=== PATIENT | female | born 1980 | race Caucasian/White ===

== ENCOUNTER 2016-10-24 09:24 | Emergency (ER) | payer SELFPAY ==
--- NOTE | 2016-10-24 10:50 | DIAGNOSTIC IMAGING REPORT ---
PROCEDURE: XR CHEST 2 VIEW INDICATION: SYNCOPE TECHNIQUE: PA and lateral views. COMPARISON: None. FINDINGS: Lungs are clear. Heart and mediastinum are normal. Thorax is normal. IMPRESSION: 1. Negative chest.
--- NOTE | 2016-10-24 10:51 | DIAGNOSTIC IMAGING REPORT ---
PROCEDURE: XR LUMBAR SPINE 2 OR 3 VIEWS INDICATION: TRAUMA/INJURY TECHNIQUE: Three views. COMPARISON: None. FINDINGS: Osseous structures and disc spaces are normal. No evidence of an acute process or fracture. IMPRESSION: 1. Negative lumbar spine.
--- NOTE | 2016-10-24 11:44 | ED ORDER SUMMARY ---
..... Patient: TARA AGUDELO OrderSheet [facility] VisitID: [id number] [place] [address] 36y, F Registration Date/Time: 10/24/2016 ORDER SHEET Weight: 61.2 kg (stated) Allergies: No Known Drug Allergy GENERAL ORDERS: Metal Cut Off Saw Tender (Continuous) (10:10/24/2016 Raymond BRYSON) (Ack 10:20 Musa) (11:29 KWilliams R.N.) Chest 2V Urgent (10:10/24/2016 Raymond BRYSON) (Ack 10:20 Edgarnandez) (11:29 KWilliams R.N.) UA-Culture if indicated Urgent (10:10/24/2016 Raymond BRYSON) (Ack 10:20 Musa) (11:29 KWilliams R.N.) Cardiac Panel Stat (10:10/24/2016 Raymond BRYSON) (Ack 10:20 Musa) (10:28 KWilliams R.N.) Urine Urgent (10:10/24/2016 Raymond BRYSON) (Ack 10:20 Musa) (11:29 KWilliams R.N.) Urine Drug Screen Urgent (10:10/24/2016 Raymond BRYSON) (Ack 10:20 Musa) (11:29 KWlvams R.N.) EKG - ER Stat (10:10/24/2016 Raymond BRYSON) (Ack 10:20 Musa) (10:28 KWilliams R.N.) Lumbar Spine 2 or 3V Urgent (10:10/24/2016 Raymond BRYSON) (Ack 10:28 Musa) (11:29 KWlvams R.N.) TSH Urgent (10:10/24/2016 Raymond BRYSON) (10:28 KWilliams R.N.) (Ack 10:28 Edgarnandez) D-Dimer Urgent (10:10/24/2016 Raymond BRYSON) (10:28 Alvin R.N.) (Ack 10:28 OHmaitenandez) MEDICATION ORDERS: Hydrocodone-APAP PO 10/650 mg (NOW) (10:20 10/24/2016 Raymond BRYSON) (Ack 10:21 Negrito R.N.) (10:28 Alvin R.N.) Soma PO 350 mg (NOW) (10:20 10/24/2016 Raymond BRYSON) (Ack 10:21 Negrito R.N.) (10:28 Alvin R.N.) Toradol IM 60 mg (NOW) (10:53 10/24/2016 Raymond BRYSON) (Cancelled: Other11:30 Raymond BRYSON) IV FLUIDS: Toradol IV 30 mg (NOW) (11:30 10/24/2016 Raymond BRYSON) (11:36 Alvin R.N.) ORDER SHEET NOTES: [Electronically signed by Nazario Thomason R.N. (14:10/24/2016)] [Electronically signed by Lee Gillis MD (21:10/25/2016)] [Electronically locked/signed by Nazario Thomason R.N. (14:10/24/2016)]
--- NOTE | 2016-10-24 11:44 | ED CLINICAL REPORT ---
Clinical Report - Physicians/Mid Levels [facility] [address] [place] [address] 10/24/2016 9:27 [id number] Time Seen: 10:01 Oct 24 2016. Arrived- By private vehicle. Historian- patient. CPT: ER phys charges level 4 plus (#[id number]). EKG interpretation (#[id number]). HISTORY OF PRESENT ILLNESS Chief Complaint: BACK PAIN. It is described as being moderate in degree and in the area of the lower lumbar spine and radiating to the right hip, thigh, knee, calf and foot and right groin and to the left hip, thigh, knee, calf and foot and left groin. The quality is noted to be sharp, aching and "pain". 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 She states she doesn't remember much about the fall.). and it is still present. No bladder dysfunction, bowel dysfunction, sensory loss or motor loss. Additional history - Pt states she was in the kitchen 2 weeks ago, felt light headed with left arm pain. Woke up on the ground with left supraorbital laceration. Did not see a Doctor due to no insurance. Head wound has resolved. Has had no residual or increasing neurological symptoms. Has had persistent low back pain with radiation down the lateral and anterior legs to both feet. Also has had radicular pain to the groin. Has a history of chronic low back pain. Feels she may have passed out due to heavy work in hot temperatures and poor water intake that day. Patient notes an injury. Mechanism of injury- (Fall). Similar symptoms previously: Milder. Diagnosis: chronic back pain. Recent medical care: Not recently seen/assessed. REVIEW OF SYSTEMS No fever, chills, difficulty with urination, urinary frequency or hematuria. No skin rash, headache, sore throat, cough or difficulty breathing. No chest pain, abdominal pain, nausea, vomiting or diarrhea. No black stools. Has been off medications due to no insurance. All systems otherwise negative, except as recorded above. PAST HISTORY Has had back injury. She has had prior back pain. Thyroid Disease. Grave's Disease. Back Pain. IUD : Ne menses for a couple of years. Additional Surgeries: no known surgeries. Medications: None. Allergies: No Known Drug Allergy. SOCIAL HISTORY Former smoker. Occasional alcohol use. History of drug use: marijuana. ADDITIONAL NOTES The nursing notes have been reviewed. PHYSICAL EXAM Vital Signs: 10/24/2016 09:38 BP: 141/72. HR: 89. RR: 17. O2 saturation: 100%. Temp: 98.1 F. Appearance: Alert. HEENT: Normal external inspection. ENT: Ears normal. Pharynx normal. Neck: Normal inspection. Neck nontender. Painless ROM. CVS: Heart sounds normal. Pulses normal. Respiratory: No respiratory distress. Breath sounds normal. Abdomen: No visible injury. Soft and nontender. Bowel sounds normal. No mass. Back: Normal inspection. Moderate vertebral point tenderness over the lower lumbar spine. Moderate soft tissue tenderness in the right mid and lower and left mid and lower lumbar area. Skin: Skin warm. Normal skin color. No rash. Extremities: Extremities exhibit normal ROM. Extremities nontender. No calf tenderness. Neuro: Oriented X 3. Mood/affect normal. No motor deficit. No sensory deficit. Reflexes normal. Reflex exam: right biceps 2+, left biceps 2+, right patellar 2+, left patellar 2+, right Achilles 1+ and left Achilles 1+. No Babinski present on the right or left. DTRs otherwise normal. No clonus present. (no perineal anesthesia.). LABS, X-RAYS, AND EKG EKG: No acute process. Normal sinus rhythm. Normal P waves. Normal BETZAIDA. Normal QRS complex. Normal axis. Normal ST and T waves. Prior EKG unavailable. The study has been interpreted contemporaneously. The study has been independently viewed by me. The EKG appears to be a good tracing. X-Rays: Chest X-ray. LS spine series. LS-Spine X-rays: (Decreased disc height L5-S1.). Views: AP, lateral and obliques. Technique: good. The X-rays were independently viewed by me. Laboratory Tests: CBC w Diff: (LAVERNE: 10/24/2016 10:29) ( MsgRcvd 10/24/2016 10:47) Final results Test Result Flag Units (Reference) WHITE BLOOD COUNT 4.8 K/uL (4.5-11.5) RED BLOOD COUNT 4.26 M/uL (4.00-5.20) HEMOGLOBIN 13.5 gm/dL (12.0-16.0) HEMATOCRIT 39.8 % (36.0-46.0) MEAN CELL VOLUME 94 fL (80-100) MEAN CORPUSCULAR HGB 32 pg (26-34) MEAN CORPUSCULAR HGB CONC 34 g/dL (31-37) RED CELL DISTRIBUTION WIDTH 13.2 % (11.6-14.8) PLATELET COUNT 235 K/uL (150-400) NEUTROPHIL % 77.9 H % (50-75) LYMPH % 16.8 L % (25-40) MONO % 4.5 % (3-14) EOSINOPHIL % 0.4 % (0-4) BASOPHIL % 0.4 % (0-2) [id number]: (LAVERNE: 10/24/2016 10:29) ( PrgRcvd 10/24/2016 10:56) Final results Test Result Flag Units (Reference) D-DIMER QUANTITATIVE < 0.27 L ug/mLFEU (0.27-0.52) The primary value of this quantitative assay relates toits negative predictive value (i.e. exclusion) of pulmonaryembolism/deep vein thrombosis/DIC.Elevated levels of d-dimer may also occur with:, age, cancer, inflammation, liver disease,post-op, infection, hematoma, coronary disease, peripheralarteriopathy, bleeding disorders and thrombolytic treatment.Results should be correlated with other clinical andradiological data.Testing Methodology: Latex Immunoassay CHEM 13 PANEL: (LAVERNE: 10/24/2016 10:29) ( [facility] 10/24/2016 11:05) Final results Test Result Flag Units (Reference) GLUCOSE 91 mg/dL (70-110) BUN 17 mg/dL (7-18) CREATININE 0.9 mg/dL (0.6-1.3) Estimated GFR >60 mL/min Estimated GFR- >60 mL/min Note: Persistent reduction over 3 months in eGFR<60 mL/min/1.73 m2 defines CKD. Patients with eGFR values>=60 mL/min/1.73 m2 may also have CKD if evidence ofpersistent proteinuria. Additional information may be foundat [email or web address]. SODIUM 139 mmol/L (136-145) POTASSIUM 4.3 mmol/L (3.5-5.1) CHLORIDE 104 mmol/L (98-107) CARBON DIOXIDE 29 mmol/L (21-32) CALCIUM 8.8 mg/dL (8.5-10.1) TOTAL PROTEIN 7.7 g/dL (6.4-8.2) ALBUMIN 4.1 g/dL (3.3-5.0) BILIRUBIN, TOTAL 0.3 mg/dL (0.0-1.0) ALKALINE PHOSPHATASE 51 U/L (46-116) AST (SGOT) 18 U/L (15-37) ALT (SGPT) 25 U/L (12-78) CPK 109 U/L (24-260) MAGNESIUM 1.9 mg/dL (1.8-2.4) TROPONIN I <0.05 L ng/mL (0.00-1.5) TROPONIN REFERENCE RANGE:<0.1 NEGATIVE0.1-1.5 INDETERMINANT>1.5 POSITIVE THYROID STIMULATING HORMONE 25.600 H uIU/mL (0.34-3.74) . PROGRESS AND PROCEDURES Course of Care: Vicodin 2 po Soma 1 po Toradol 30 mg IV Patient is stable. Symptoms better. Patient/family counseled. Disposition: Discharged. Condition: stable. CLINICAL IMPRESSION Acute lumbar strain. Fall on same level by stumbling (Due to syncope). Contusion to the low back with radicular pain in both legs. Syncope likely due to dehydration and hypothyroidism. Hypothyroid with elevated TSH. INSTRUCTIONS Apply moist heat for 15-20 minutes three times a day for one weeks until better. Limit lifting. No strenuous activity. Do not work for two days until better. (Call Hospital and ask for Lai Panda to discuss insurance options.). Warnings: GENERAL WARNINGS: Return or contact your physician immediately if your condition worsens or changes unexpectedly, if not improving as expected, or if other problems arise. Prescription Medications: Hydrocodone/APAP 5mg/325mg: take 1 to 2 orally every 6 hours as needed for pain. Dispense fifteen (15). No refills. Ibuprofen 600mg tablets: take 1 tablet orally every 8 hours as needed for pain. Dispense thirty (30). No refills. Soma 350 mg: Take 1 orally every 6 hours as needed for muscle spasm. Dispense twenty (20). No refills. Substitution is permissible. Understanding of the discharge instructions verbalized by patient. Follow-up with: [facility], , , [address], [facility], [id number] Follow up in one week. Call for the next available appointment. Reason for referral: back pain, syncope and hypothyroidism. (Electronically signed by Lee Gillis MD 10/25/2016 21:27)
--- NOTE | 2016-10-24 11:44 | ED CLINICAL REPORT ---
Clinical Report - Physicians/Mid Levels [facility] [address] [place] [address] 10/24/2016 9:27 [id number] Time Seen: 10:01 Oct 24 2016. Arrived- By private vehicle. Historian- patient. CPT: ER phys charges level 4 plus (#[id number]). EKG interpretation (#[id number]). HISTORY OF PRESENT ILLNESS Chief Complaint: BACK PAIN. It is described as being moderate in degree and in the area of the lower lumbar spine and radiating to the right hip, thigh, knee, calf and foot and right groin and to the left hip, thigh, knee, calf and foot and left groin. The quality is noted to be sharp, aching and "pain". 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 She states she doesn't remember much about the fall.). and it is still present. No bladder dysfunction, bowel dysfunction, sensory loss or motor loss. Additional history - Pt states she was in the kitchen 2 weeks ago, felt light headed with left arm pain. Woke up on the ground with left supraorbital laceration. Did not see a Doctor due to no insurance. Head wound has resolved. Has had no residual or increasing neurological symptoms. Has had persistent low back pain with radiation down the lateral and anterior legs to both feet. Also has had radicular pain to the groin. Has a history of chronic low back pain. Feels she may have passed out due to heavy work in hot temperatures and poor water intake that day. Patient notes an injury. Mechanism of injury- (Fall). Similar symptoms previously: Milder. Diagnosis: chronic back pain. Recent medical care: Not recently seen/assessed. REVIEW OF SYSTEMS No fever, chills, difficulty with urination, urinary frequency or hematuria. No skin rash, headache, sore throat, cough or difficulty breathing. No chest pain, abdominal pain, nausea, vomiting or diarrhea. No black stools. Has been off medications due to no insurance. All systems otherwise negative, except as recorded above. PAST HISTORY Has had back injury. She has had prior back pain. Thyroid Disease. Grave's Disease. Back Pain. IUD : Ne menses for a couple of years. Additional Surgeries: no known surgeries. Medications: None. Allergies: No Known Drug Allergy. SOCIAL HISTORY Former smoker. Occasional alcohol use. History of drug use: marijuana. ADDITIONAL NOTES The nursing notes have been reviewed. PHYSICAL EXAM Vital Signs: 10/24/2016 09:38 BP: 141/72. HR: 89. RR: 17. O2 saturation: 100%. Temp: 98.1 F. Appearance: Alert. HEENT: Normal external inspection. ENT: Ears normal. Pharynx normal. Neck: Normal inspection. Neck nontender. Painless ROM. CVS: Heart sounds normal. Pulses normal. Respiratory: No respiratory distress. Breath sounds normal. Abdomen: No visible injury. Soft and nontender. Bowel sounds normal. No mass. Back: Normal inspection. Moderate vertebral point tenderness over the lower lumbar spine. Moderate soft tissue tenderness in the right mid and lower and left mid and lower lumbar area. Skin: Skin warm. Normal skin color. No rash. Extremities: Extremities exhibit normal ROM. Extremities nontender. No calf tenderness. Neuro: Oriented X 3. Mood/affect normal. No motor deficit. No sensory deficit. Reflexes normal. Reflex exam: right biceps 2+, left biceps 2+, right patellar 2+, left patellar 2+, right Achilles 1+ and left Achilles 1+. No Babinski present on the right or left. DTRs otherwise normal. No clonus present. (no perineal anesthesia.). LABS, X-RAYS, AND EKG EKG: No acute process. Normal sinus rhythm. Normal P waves. Normal BETZAIDA. Normal QRS complex. Normal axis. Normal ST and T waves. Prior EKG unavailable. The study has been interpreted contemporaneously. The study has been independently viewed by me. The EKG appears to be a good tracing. X-Rays: Chest X-ray. LS spine series. LS-Spine X-rays: (Decreased disc height L5-S1.). Views: AP, lateral and obliques. Technique: good. The X-rays were independently viewed by me. Laboratory Tests: CBC w Diff: (LAVERNE: 10/24/2016 10:29) ( MsgRcvd 10/24/2016 10:47) Final results Test Result Flag Units (Reference) WHITE BLOOD COUNT 4.8 K/uL (4.5-11.5) RED BLOOD COUNT 4.26 M/uL (4.00-5.20) HEMOGLOBIN 13.5 gm/dL (12.0-16.0) HEMATOCRIT 39.8 % (36.0-46.0) MEAN CELL VOLUME 94 fL (80-100) MEAN CORPUSCULAR HGB 32 pg (26-34) MEAN CORPUSCULAR HGB CONC 34 g/dL (31-37) RED CELL DISTRIBUTION WIDTH 13.2 % (11.6-14.8) PLATELET COUNT 235 K/uL (150-400) NEUTROPHIL % 77.9 H % (50-75) LYMPH % 16.8 L % (25-40) MONO % 4.5 % (3-14) EOSINOPHIL % 0.4 % (0-4) BASOPHIL % 0.4 % (0-2) [id number]: (LAVERNE: 10/24/2016 10:29) ( CogRcvd 10/24/2016 10:56) Final results Test Result Flag Units (Reference) D-DIMER QUANTITATIVE < 0.27 L ug/mLFEU (0.27-0.52) The primary value of this quantitative assay relates toits negative predictive value (i.e. exclusion) of pulmonaryembolism/deep vein thrombosis/DIC.Elevated levels of d-dimer may also occur with:, age, cancer, inflammation, liver disease,post-op, infection, hematoma, coronary disease, peripheralarteriopathy, bleeding disorders and thrombolytic treatment.Results should be correlated with other clinical andradiological data.Testing Methodology: Latex Immunoassay CHEM 13 PANEL: (LAVERNE: 10/24/2016 10:29) ( [facility] 10/24/2016 11:05) Final results Test Result Flag Units (Reference) GLUCOSE 91 mg/dL (70-110) BUN 17 mg/dL (7-18) CREATININE 0.9 mg/dL (0.6-1.3) Estimated GFR >60 mL/min Estimated GFR- >60 mL/min Note: Persistent reduction over 3 months in eGFR<60 mL/min/1.73 m2 defines CKD. Patients with eGFR values>=60 mL/min/1.73 m2 may also have CKD if evidence ofpersistent proteinuria. Additional information may be foundat [email or web address]. SODIUM 139 mmol/L (136-145) POTASSIUM 4.3 mmol/L (3.5-5.1) CHLORIDE 104 mmol/L (98-107) CARBON DIOXIDE 29 mmol/L (21-32) CALCIUM 8.8 mg/dL (8.5-10.1) TOTAL PROTEIN 7.7 g/dL (6.4-8.2) ALBUMIN 4.1 g/dL (3.3-5.0) BILIRUBIN, TOTAL 0.3 mg/dL (0.0-1.0) ALKALINE PHOSPHATASE 51 U/L (46-116) AST (SGOT) 18 U/L (15-37) ALT (SGPT) 25 U/L (12-78) CPK 109 U/L (24-260) MAGNESIUM 1.9 mg/dL (1.8-2.4) TROPONIN I <0.05 L ng/mL (0.00-1.5) TROPONIN REFERENCE RANGE:<0.1 NEGATIVE0.1-1.5 INDETERMINANT>1.5 POSITIVE THYROID STIMULATING HORMONE 25.600 H uIU/mL (0.34-3.74) . PROGRESS AND PROCEDURES Course of Care: Vicodin 2 po Soma 1 po Toradol 30 mg IV Patient is stable. Symptoms better. Patient/family counseled. Disposition: Discharged. Condition: stable. CLINICAL IMPRESSION Acute lumbar strain. Fall on same level by stumbling (Due to syncope). Contusion to the low back with radicular pain in both legs. Syncope likely due to dehydration and hypothyroidism. Hypothyroid with elevated TSH. INSTRUCTIONS Apply moist heat for 15-20 minutes three times a day for one weeks until better. Limit lifting. No strenuous activity. Do not work for two days until better. (Call Hospital and ask for Lai Panda to discuss insurance options.). Warnings: GENERAL WARNINGS: Return or contact your physician immediately if your condition worsens or changes unexpectedly, if not improving as expected, or if other problems arise. Prescription Medications: Hydrocodone/APAP 5mg/325mg: take 1 to 2 orally every 6 hours as needed for pain. Dispense fifteen (15). No refills. Ibuprofen 600mg tablets: take 1 tablet orally every 8 hours as needed for pain. Dispense thirty (30). No refills. Soma 350 mg: Take 1 orally every 6 hours as needed for muscle spasm. Dispense twenty (20). No refills. Substitution is permissible. Understanding of the discharge instructions verbalized by patient. Follow-up with: [facility], , , [address], [facility], [id number] Follow up in one week. Call for the next available appointment. Reason for referral: back pain, syncope and hypothyroidism. (Electronically signed by Lee Gillis MD 10/25/2016 21:27)
--- NOTE | 2016-10-24 11:44 | ED NURSING NOTES ---
Clinical Report - Nurses [facility] [address] [place] [address] 10/24/2016 9:27 Patient: TARA AGUDELO TRIAGE Triage time 09:35. Acuity: LEVEL 3. Chief Complaint: BACK PAIN. Alert. No acute distress. SEPSIS SCREEN: Sepsis Screen. Negative (no infection suspected/documented). Heart rate greater than 90. Respiratory rate not greater than 20. TOYA COMA SCORE: Toya Coma Scale: 15- eyes open spontaneously (4); best verbal response- oriented x 4 (5); best motor response- obeys commands (6). --09:42 Nazario Thomason R.N. 09:38 10/24/16. BP: 141/72. HR: 89. RR: 17. O2 saturation: 100%. Temp: 98.1 F. Pain level now 01/17. --09:42 Nazario Thomason R.N. Weight: 61.2 kg stated. Height/Length: 66 inches Per Patient. BMI: 21.8. --09:40 Nazario Thomason R.N. Medications None. --09:41 Nazario Thomason R.N. Medication/allergy information source: the patient. --09:42 Nazario Thomason R.N. Allergies No Known Drug Allergy. --09:41 Nazario Thomason R.N. History Arrived by private vehicle. Historian: patient. Accompanied by (cousin). Primary physician (no pcp). ( back pain x2-3 weeks. She states she has chronic back pain, but it has worsened since a fall 2-3 weeks ago. She states she doesn't remember much about the fall.). Onset. (about 2 1/2 weeks ago). History of recent trauma- fall. Occurred at home. Treatment [place]: None. PAST MEDICAL HX: Uses an intrauterine device. Denies current . SOCIAL HX: Former smoker, end date 2011. Occasional alcohol use. History of drug use: marijuana. ABUSE ASSESSMENT: No report of abuse. SELF HARM ASSESSMENT: A self harm assessment was performed. The patient answered "no" to the question "Do you have thoughts of harming or killing yourself?" and "Have you recently had thoughts about harming or killing others?". FALL RISK ASSESSMENT: Fall risk assessment completed. No fall risk identified. NUTRITIONAL RISK ASSESSMENT: The nutritional risk assessment revealed no deficiencies. FUNCTIONAL ASSESSMENT: Functional assessment: no impairments noted. LEARNING NEEDS ASSESSMENT: The learning needs assessment revealed no barriers. SKIN INTEGRITY ASSESSMENT: Skin integrity risk assessment completed. No skin integrity risk identified. --09:42 Nazario Thomason R.N. PROBLEMS: Thyroid Disease. Grave's Disease. Back Pain. --09:41 Nazario Thomason R.N. ADDITIONAL SURGERIES: no known surgeries. Assessment GENERAL / NEURO / PSYCH: Alert. Oriented X 4. Appears in no acute distress. Patient appears calm and cooperative. ( walking independently). RESPIRATORY: Respirations not labored. CVS: Capillary refill less than 2 seconds. GI / : Abdomen soft. SKIN: Skin is warm and dry. --09:42 Nazario Thomason R.N. Interventions ID band on patient. To room. --09:42 Nazario Thomason R.N. PHYSICAL ASSESSMENT Ambulatory to room. GENERAL / NEURO / PSYCH: Alert. Oriented X 4. Appears in no acute distress. RESPIRATORY: Respirations not labored. CVS: Capillary refill less than 2 seconds. GI / : Abdomen soft. BACK: Normal inspection of the neck and back. --09:43 Nazario Thomason R.N. NURSING PROGRESS NOTES 09:43 10/24/16. The plan of care for this patient has been created. Patient gowned. Call light placed in reach. Bed placed in lowest position. Brakes of bed on. Patient ready for evaluation- chart flagged. --09:43 Nazario Thomason R.N. 10:26 10/24/2016 Site #1 started via IV in the right antecubital space with an 20g angiocath, with aseptic technique and good blood return; one attempt. Blood drawn: rainbow set. Labeled in the presence of the patient and sent to the lab. Saline lock flushed with 10 mL saline. --10:31 Nazario Thomason R.N. 10:28 10/24/2016 Hydrocodone-APAP (Hydrocodone-Acetaminophen) PO 5/325 mg Tablets 2 tab given. Allergies verified, confirmed 5 rights and sedative warning given to the patient. --10:28 Nazario Thomason R.N. 10:28 10/24/2016 Soma (Carisoprodol) PO Tablets 350 mg given. Allergies verified, confirmed 5 rights and sedative warning given to the patient. --10:28 Nazario Thomason R.N. EKG time: (1026). EKG was ordered, performed by a tech and shown to the ED physician. --10:29 Kalpesh Mounika The patient reports no complaints and she is calm and resting quietly. --10:31 Nazario Thomason R.N. Assisted patient to bathroom; tolerated well. --10:32 Nazario Thomason R.N. Patient ID band checked for patient name and birthdate: patient confirmed. Instructions provided to collect clean catch urine and patient verbalized understanding. Clean catch urine collected with return of yellow-colored clear urine; odor is normal; sample sent to lab for urinalysis, culture, drug screen and HCG. Specimen labeled in the presence of the patient. --11:31 Nazario Thomason R.N. 11:31 10/24/16. BP: 113/69. HR: 82. RR: 10. O2 saturation: 100%. Pain level now 6/10. --11:31 Nazario Thomason R.N. 11:31 10/24/2016 Toradol IVP 30 mg given over 1 minute(s) via site #1. Allergies verified and confirmed 5 rights. IV patency established. IV site checked: no pain, redness, or swelling. IV flushed thoroughly pre- and post-medication administration. IVP given by RN. --11:36 Nazario Thomason R.N. DISPOSITION / DISCHARGE 11:57 10/24/16. Departure time: 1154. Condition at departure: improved and stable. No learning barriers present. Discharge instructions provided and reviewed with the relative and patient. Reviewed medication(s) side effects, precautions, dosing and course information. Prescription(s) given to the patient. Reviewed referral to a primary care physician for followup ([facility]). Activity restrictions (light lifting) reviewed. Work note given. Patient verbalized understanding. Written instructions provided in Polish. The patient was discharged by the physician. She was discharged home and accompanied by family. She left the Emergency Department ambulatory and via private vehicle. Family member driving. --11:58 Nazario Thomason R.N. 11:57 10/24/16. BP: 109/64. HR: 83. RR: 14. O2 saturation: 100%. Pain level now 09/17. --11:58 Nazario Thomason R.N. Locked/Released at 10/24/2016 14:27 by Nazario Thomason R.N.
--- NOTE | 2016-10-24 11:44 | ED ORDER SUMMARY ---
..... Patient: TARA AGUDELO OrderSheet [facility] VisitID: [id number] [place] [address] 36y, F Registration Date/Time: 10/24/2016 ORDER SHEET Weight: 61.2 kg (stated) Allergies: No Known Drug Allergy GENERAL ORDERS: Department Sales Manager (Continuous) (10:10/24/2016 Raymond BRYSON) (Ack 10:20 Musa) (11:29 KWilliams R.N.) Chest 2V Urgent (10:10/24/2016 Raymond BRYSON) (Ack 10:20 Edgarnandez) (11:29 KWilliams R.N.) UA-Culture if indicated Urgent (10:10/24/2016 Raymond BRYSON) (Ack 10:20 Musa) (11:29 KWilliams R.N.) Cardiac Panel Stat (10:10/24/2016 Raymond BRYSON) (Ack 10:20 Musa) (10:28 KWilliams R.N.) Urine Urgent (10:10/24/2016 Raymond BRYSON) (Ack 10:20 Musa) (11:29 KWilliams R.N.) Urine Drug Screen Urgent (10:10/24/2016 Raymond BRYSON) (Ack 10:20 Musa) (11:29 KWlvams R.N.) EKG - ER Stat (10:10/24/2016 Raymond BRYSON) (Ack 10:20 Musa) (10:28 KWilliams R.N.) Lumbar Spine 2 or 3V Urgent (10:10/24/2016 Raymond BRYSON) (Ack 10:28 Musa) (11:29 KWlvams R.N.) TSH Urgent (10:10/24/2016 Raymond BRYSON) (10:28 KWilliams R.N.) (Ack 10:28 Edgarnandez) D-Dimer Urgent (10:10/24/2016 Raymond BRYSON) (10:28 Alvin R.N.) (Ack 10:28 OHmaitenandez) MEDICATION ORDERS: Hydrocodone-APAP PO 10/650 mg (NOW) (10:20 10/24/2016 Raymond BRYSON) (Ack 10:21 Negrito R.N.) (10:28 Alvin R.N.) Soma PO 350 mg (NOW) (10:20 10/24/2016 Raymond BRYSON) (Ack 10:21 Negrito R.N.) (10:28 Alvin R.N.) Toradol IM 60 mg (NOW) (10:53 10/24/2016 Raymond BRYSON) (Cancelled: Other11:30 Raymond BRYSON) IV FLUIDS: Toradol IV 30 mg (NOW) (11:30 10/24/2016 Raymond BRYSON) (11:36 Alvin R.N.) ORDER SHEET NOTES: [Electronically signed by Nazario Thomason R.N. (14:10/24/2016)] [Electronically signed by Lee Gillis MD (21:10/25/2016)] [Electronically locked/signed by Nazario Thomason R.N. (14:10/24/2016)]
--- NOTE | 2016-10-25 21:27 | ED DISCHARGE INSTRUCTIONS ---
Patient: TARA AGUDELO General Instructions [facility] VisitID: [id number] [address], [place] [address] 36y, F Registration Date/Time: 10/24/2016 Acute lumbar strain. Fall on same level by stumbling (Due to syncope). Contusion to the low back with radicular pain in both legs. Syncope likely due to dehydration and hypothyroidism. Hypothyroid with elevated TSH. INSTRUCTIONS Apply moist heat for 15-20 minutes three times a day for one weeks until better. Limit lifting. No strenuous activity. Do not work for two days until better. (Call Hospital and ask for Lai Fernandezer to discuss insurance options.). Warnings: GENERAL WARNINGS: Return or contact your physician immediately if your condition worsens or changes unexpectedly, if not improving as expected, or if other problems arise. Prescription Medications: Hydrocodone/APAP 5mg/325mg: take 1 to 2 orally every 6 hours as needed for pain. Dispense fifteen (15). No refills. Ibuprofen 600mg tablets: take 1 tablet orally every 8 hours as needed for pain. Dispense thirty (30). No refills. Soma 350 mg: Take 1 orally every 6 hours as needed for muscle spasm. Dispense twenty (20). No refills. Substitution is permissible. Understanding of the discharge instructions verbalized by patient. Follow-up with: [facility], , , [address], , [place], [address] Follow up in one week. Call for the next available appointment. Reason for referral: back pain, syncope and hypothyroidism. ADDITIONAL INFORMATION Mechanical Fall You have had a fall today. It appears that the cause is mechanical. That means that you slipped, tripped or lost your balance. If your fall had been due to fainting or a seizure, further tests would be required. Home Care: Rest today and resume your normal activities when you are feeling back to normal. If you were injured during the fall, follow the advice from your doctor regarding care of your injury. You may use acetaminophen (Tylenol) or ibuprofen (Motrin, Advil) to control pain, unless another pain medicine was prescribed. [NOTE: If you have chronic liver or kidney disease or ever had a stomach ulcer or GI bleeding, talk with your doctor before using these medicines.] Fall Prevention: Was there anything that caused your fall that can be fixed, removed, or replaced? Make your home safe by keeping walkways clear of objects you may trip over. Use non-slip pads under rugs. Do not walk in poorly lit areas. Do not stand on chairs or wobbly ladders. Use caution when reaching overhead or looking upward. This position can cause a loss of balance. Be sure your shoes fit properly, have non-slip bottoms and are in good condition. Be cautious when going up and down curbs, and walking on uneven sidewalks. If your balance is poor, consider using a cane or walker. Stay as active as you can. Balance, flexibility, strength, and endurance all come from exercise. They all play a role in preventing falls. Follow Up with your doctor or as advised by our staff. Get Prompt Medical Attention if any of the following occur: Repeated mechanical falls, or unexplained falls Dizziness, fainting or seizure Severe headache Chest pain or shortness of breath Palpitations (very rapid or very slow or irregular heartbeat) Blood in vomit, stools (black or red color) Weakness of an arm or leg or one side of the face Difficulty with speech or vision Sciatica Sciatica ("Lumbar Radiculopathy") causes a pain that spreads from the lower back down into the buttock, hip and leg. Sometimes leg pain can occur without any back pain. Sciatica is due to irritation or pressure on a spinal nerve as it comes out of the spinal canal. This is most often due to a bulge or rupture of a nearby spinal disk (the cartilage cushion between each spinal bone), which presses on a nearby nerve. Other causes include spinal stenosis (narrowing of the spinal canal) and spasm of the pyriform muscle (a muscle in the buttocks that the sciatic nerve passes through). Sciatica may begin after a sudden twisting/bending force (such as in a car accident), or sometimes after a simple awkward movement. In either case, muscle spasm is commonly present and contributes to the pain. The diagnosis of sciatica is made from the symptoms and physical exam. Unless you had a physical injury (such as a car accident or fall), X-rays are usually not ordered for the initial evaluation of sciatica because the nerves and disks cannot be seen on an x-ray. If signs of a compressed nerve are present (for example, loss of tendon reflex or strength in the leg), an MRI (magnetic resonance imaging) scan will need to be scheduled as an outpatient. Most sciatica (80-90%) gets better with medicine, exercise, physical therapy. If symptoms continue after at least three months of medical treatment, surgery may be considered. Home Care: You may need to stay in bed the first few days. But, as soon as possible, begin sitting or walking to avoid problems with prolonged bed rest. When in bed, try to find a position of comfort. A firm mattress is best. Try lying flat on your back with pillows under your knees. You can also try lying on your side with your knees bent up towards your chest and a pillow between your knees. Avoid prolonged sitting. This puts more stress on the lower back than standing or walking. Some persons find relief with heat (hot shower, hot bath or heating pad) and massage, while others prefer cold packs (crushed or cubed ice in a plastic bag, wrapped in a towel). Try both and use the method that feels best for 20 minutes several times a day. You may use acetaminophen (Tylenol) or ibuprofen (Motrin, Advil) to control pain, unless another pain medicine was prescribed. [ NOTE: If you have chronic liver or kidney disease or ever had a stomach ulcer or GI bleeding, talk with your doctor before using these medicines.] Be aware of safe lifting methods and do not lift anything over 15 pounds until all the pain is gone. Follow Up with your doctor or this facility if your symptoms do not start to improve after one week. Physical therapy or further testing may be needed. [NOTE: If X-rays were taken, they will be reviewed by a radiologist. You will be notified of any new findings that may affect your care.] Get Prompt Medical Attention if any of the following occur: Pain becomes worse, not controlled by the prescribed medicine Weakness or numbness in one or both legs Numbness in the groin, genital area Loss of bowel or bladder control You have been given the following additional information: Fall, Mechanical Back Pain W/ Sciatica Limit lifting. No strenuous activity. Do not work for two days until better. (Electronically signed by Lee Gillis MD 10/25/2016 21:27)
--- NOTE | 2016-10-25 21:27 | ED MED RECONCILIATION SUMMARY ---
Patient: TARA AGUDELO Medication Reconciliation Report [facility] VisitID: [id number] [place] [address] 36y, F Registration Date/Time: 10/24/2016 Weight: 61.2 kg Height/Length: 66 in. BMI: 21.8 ALLERGIES: No Known Drug Allergy The patient's Home Medications are listed below: NONE. The source(s) of the original Home Medication information: patient The following Medications were given to the patient in the Emergency Department: Hydrocodone-APAP [PO] PO 2 tab, administered: 10/24/2016 10:28:00 AM Soma [PO] PO 350 mg, administered: 10/24/2016 10:28:00 AM Toradol [IVP] IVP 30 mg, administered: 10/24/2016 11:31:00 AM The following Medications were prescribed to the patient: Hydrocodone/APAP 5mg/325mg: take 1 to 2 orally every 6 hours as needed for pain. Dispense fifteen (15). No refills. -- Lee Gillis MD Ibuprofen 600mg tablets: take 1 tablet orally every 8 hours as needed for pain. Dispense thirty (30). No refills. -- Lee Gillis MD Soma 350 mg: Take 1 orally every 6 hours as needed for muscle spasm. Dispense twenty (20). No refills. Substitution is permissible. -- Lee Gillis MD
--- NOTE | 2016-10-25 21:27 | ED MED RECONCILIATION SUMMARY ---
Patient: TARA AGUDELO Medication Reconciliation Report [facility] VisitID: [id number] [place] [address] 36y, F Registration Date/Time: 10/24/2016 Weight: 61.2 kg Height/Length: 66 in. BMI: 21.8 ALLERGIES: No Known Drug Allergy The patient's Home Medications are listed below: NONE. The source(s) of the original Home Medication information: patient The following Medications were given to the patient in the Emergency Department: Hydrocodone-APAP [PO] PO 2 tab, administered: 10/24/2016 10:28:00 AM Soma [PO] PO 350 mg, administered: 10/24/2016 10:28:00 AM Toradol [IVP] IVP 30 mg, administered: 10/24/2016 11:31:00 AM The following Medications were prescribed to the patient: Hydrocodone/APAP 5mg/325mg: take 1 to 2 orally every 6 hours as needed for pain. Dispense fifteen (15). No refills. -- Lee Gillis MD Ibuprofen 600mg tablets: take 1 tablet orally every 8 hours as needed for pain. Dispense thirty (30). No refills. -- Lee Gillis MD Soma 350 mg: Take 1 orally every 6 hours as needed for muscle spasm. Dispense twenty (20). No refills. Substitution is permissible. -- Lee Gillis MD
--- NOTE | 2016-10-25 21:27 | ED MAR SUMMARY ---
..... Medication Administration Record [facility] [address] [place] [address] Patient: TARA AGUDELO Visit ID: [id number] 36y, F Weight: 61.2 kg Height/Length: 66 in BMI: 21.8 ALLERGIES: No Known Drug Allergy Given 10:28 10/24/2016 Nazario Thomason R.N. Medication Administered: HYDROCODONE-APAP [PO] (HYDROCODONE-ACETAMINOPHEN), Dose: 2 tab 5/325 mg Tablets PO. Medication Ordered: Hydrocodone-APAP PO 10/650 mg (NOW). Given 10:10/24/2016 Nazario Thomason R.N. Medication Administered: SOMA [PO] (CARISOPRODOL), Dose: 350 mg Tablets PO. Medication Ordered: Soma PO 350 mg (NOW). Given 11:31 10/24/2016 Nazario Thomason R.N. Medication Administered: TORADOL [IVP], Dose: 30 mg IVP over 1 minute(s), Site: #1 right AC. Medication Ordered: Toradol IV 30 mg (NOW).
--- NOTE | 2016-10-25 21:27 | ED MAR SUMMARY ---
..... Medication Administration Record [facility] [address] [place] [address] Patient: TARA AGUDELO Visit ID: [id number] 36y, F Weight: 61.2 kg Height/Length: 66 in BMI: 21.8 ALLERGIES: No Known Drug Allergy Given 10:28 10/24/2016 Nazario Thomason R.N. Medication Administered: HYDROCODONE-APAP [PO] (HYDROCODONE-ACETAMINOPHEN), Dose: 2 tab 5/325 mg Tablets PO. Medication Ordered: Hydrocodone-APAP PO 10/650 mg (NOW). Given 10:10/24/2016 Nazario Thomason R.N. Medication Administered: SOMA [PO] (CARISOPRODOL), Dose: 350 mg Tablets PO. Medication Ordered: Soma PO 350 mg (NOW). Given 11:31 10/24/2016 Nazario Thomason R.N. Medication Administered: TORADOL [IVP], Dose: 30 mg IVP over 1 minute(s), Site: #1 right AC. Medication Ordered: Toradol IV 30 mg (NOW).
== END 2016-10-24 11:54 | disposition home or self-care (01) ==
LOC: ED SRH 09:24
DX: S39.012A Strain of muscle, fascia and tendon of lower back, initial encounter (principal); S30.0XXA Contusion of lower back and pelvis, initial encounter; M79.662 Pain in left lower leg; W01.0XXA Fall on same level from slipping, tripping and stumbling without subsequent striking against object, initial encounter; Y93.9 Activity, unspecified; Y92.019 Unspecified place in single-family (private) house as the place of occurrence of the external cause; Y99.9 Unspecified external cause status; E03.9 Hypothyroidism, unspecified; R55 Syncope and collapse; M79.661 Pain in right lower leg
CPT/HCPCS: 90004; 90100; 90616; 91556; 92610; 92720; 92760; 92761; 92762; 92763; 92764; 92765; 92766; 92767; 93070; 93140; 95059